=== PATIENT | female | born 1955 | race American Indian/Alaskan Native ===

== ENCOUNTER 2020-07-08 09:16 | Outpatient (CLI) | payer MEDICARE ==
--- NOTE | 2020-07-08 17:05 | Mammography Report ---
DIGITAL SCREENING MAMMOGRAM WITH CAD, 07/08/2020 CLINICAL INFORMATION / INDICATION: Routine screening mammography. SCREENING MAMMO TECHNIQUE: Digital bilateral 2D mammography was obtained in the craniocaudal and mediolateral obliqu e projections. This examination was interpreted with the benefit of Computer-Aided Detection analysis . COMPARISON: None FINDINGS: Breast Density: There are scattered areas of fibroglandular density. No suspicious calcifications or architectural distortion in either breast. There are 3 separate nodular densities in the left breast, one of which is near the 6:00 position and contains some calcification which most likely represents a fibroadenoma. Another nodular density is located near the 2:00 position, middle depth, and measures 8 mm. The final nodular density which is t he most worrisome given size and posterior location measures 1.2 cm, posterior depth, mid breast, and approximately 16-17 cm from the nipple. IMPRESSION: 3 separate left-sided breast nodules as outlined above. Follow up recommendation: Ultrasound BI-RADS Category 0: Incomplete. Needs additional imaging evaluation and/or prior mammograms for delbert bush. A "normal" or negative report should not discourage follow up or biopsy of a clinically significant f inding. A written summary of these findings will be mailed to the patient. The patient will be entered into a mammography reporting system which will generate a reminder letter for the patient's next appointmen t at the appropriate interval. The [employer] recommends yearly mammograms starting at age 40 and continuing as l uday as a woman is in good health. Breast MRI is recommended for women with an approximate 20-25% or greater lifetime risk of breast cancer, including women with a strong family history of breast or ova henrietta cancer or who have been treated for Hodgkin's disease. Signer Name: Nelson Hunt MD Signed: 07/08/2020 5:00 PM Workstation Name: [id number]
== END 2020-07-08 09:17 | disposition home or self-care (01) ==
LOC: SPVWC 09:16
PROVIDERS: ATTEND Family Medicine
DX: Z12.31 Encounter for screening mammogram for malignant neoplasm of breast (principal)
CPT/HCPCS: 77067